=== PATIENT | male | born 1940 | race Caucasian/White ===

== ENCOUNTER → 2017-04-11 | Outpatient (CLI) | payer MEDICARE ==
--- NOTE | 2017-04-11 13:19 | REP ---
MR LUMBAR SPINE WITHOUT AND WITH CONTRAST: HISTORY: Left foot drop. CONTRAST: ProHance 14.4 mL. Decreased signal intensity on T2-weighted images is present in the lumbar intervertebral discs. The L2-3 through L5-S1 intervertebral discs are decreased in height. These findings are consistent with disc degeneration. There is no disc bulge or herniation at the L1-2 and L5-S1 levels. There is hypertrophy of the posterior articulating facets at the L5-S1 level. The nerves exit the neural foramina without compression. A diffuse disc bulge is present at the L2-3 level. There is minimal compression of the thecal sac. There is hypertrophy of the posterior articulating facets. The L2 nerves exit the neural foramina without compression. A diffuse disc bulge is present at the L3-4 level. There is hypertrophy of the ligamenta flava and posterior articulating facets. These findings produce minimal central canal stenosis. The L3 nerves exit the neural foramina without compression. A diffuse disc bulge and small central disc extrusion are present at the L4-5 level. There is hypertrophy of the ligamenta flava and posterior articulating facets. These findings produce moderate central canal stenosis. The L4 nerves exit the neural foramina without compression. The conus medullaris is normal in appearance terminating at the level of the T12-L1 intervertebral disc. Normal signal intensity is present in the lumbar vertebral bodies. IMPRESSION: 1. Diffuse disc bulge at the L2-3 level with minimal thecal sac compression. 2. Minimal central canal stenosis at the L3-4 level secondary to disc bulge ligamentous and facet hypertrophy. 3. Moderate central canal stenosis at the L4-5 level secondary to disc bulge, disc extrusion, ligamentous and facet hypertrophy. Signed by Tariq Khalil MD 04/11/2017 01:48 P
== END ==
LOC: M RAD 11:06
PROVIDERS: ATTEND Nurse Practitioner Adult Health
DX: M21.372 Foot drop, left foot (principal); Z85.79 Personal history of other malignant neoplasms of lymphoid, hematopoietic and related tissues
CPT/HCPCS: 72158; A9576

== ENCOUNTER → 2017-07-03 | Outpatient (CLI) | payer MEDICARE ==
[2017-07-03 11:26] LABS: BLOOD UREA NITROGEN 12 MG/DL (7-18); CREATININE FOR GFR 0.79 MG/DL (0.70-1.30)
[2017-07-03 11:27] LABS: GLOMERULAR FILTRATION RATE > 60.0 (>42)
== END ==
LOC: M LAB 10:12
PROVIDERS: ATTEND Neurological Surgery
DX: M21.372 Foot drop, left foot (principal)

== ENCOUNTER → 2020-02-16 | Outpatient (CLI) | payer MEDICARE | LOC: M LABSMTC 13:07 | PROVIDERS: ATTEND Anesthesiology | DX: Z01.812 Encounter for preprocedural laboratory examination (principal); Z11.59 Encounter for screening for other viral diseases ==

== ENCOUNTER → 2020-05-14 | Outpatient (CLI) | payer MEDICARE ==
[2020-05-14 20:04] LABS: ALBUMIN 3.8 GM/DL (3.2-5.2); ALT/SGPT 25 U/L (12-78); BILIRUBIN,TOTAL 1.1 MG/DL (0.2-1.0); BLOOD UREA NITROGEN 11 MG/DL (7-18); CALCIUM LEVEL 8.6 MG/DL (8.8-10.2); CARBON DIOXIDE LEVEL 31 MEQ/L (21-32); CHLORIDE LEVEL 106 MEQ/L (98-107); CREATININE FOR GFR 0.92 MG/DL (0.70-1.30); GLOMERULAR FILTRATION RATE > 60.0 (>42); GLUCOSE, FASTING 114 MG/DL (70-100); POTASSIUM SERUM 4.1 MEQ/L (3.5-5.1); SODIUM LEVEL 141 MEQ/L (136-145); TOTAL PROTEIN 6.4 GM/DL (6.4-8.2)
== END ==
LOC: M WUC 16:03
PROVIDERS: ATTEND Nurse Practitioner Family
DX: C82.08 Follicular lymphoma grade I, lymph nodes of multiple sites (principal)

== ENCOUNTER → 2025-03-26 | Outpatient (REF) | payer MEDICARE ==
[2025-03-26 14:11] LABS: BASO # 0.0 10^3/uL (0.0-0.2); BASO % 0.0 % (0.0-1.0); EOS # 0.0 10^3/uL (0.0-0.5); EOS % 0.0 % (0.0-3.0); LYMPH # 0.5 10^3/uL (1.5-5.0); LYMPH % 32.1 % (24.0-44.0); MONO # 0.5 10^3/uL (0.0-0.8); MONO % 29.7 % (2.0-8.0); NEUTROPHILS % 37.0 % (36.0-66.0)
[2025-03-26 14:14] LABS: NEUTROPHILS # 0.6 10^3/uL (1.5-8.5)
[2025-03-26 14:15] LABS: PLATELET COUNT, AUTOMATED 65 10^3/uL (150-450)
== END ==
LOC: M LAB REF 13:15
PROVIDERS: ATTEND Nurse Practitioner
DX: C92.00 Acute myeloblastic leukemia, not having achieved remission (principal); C83.30 Diffuse large B-cell lymphoma, unspecified site; C85.18 Unspecified B-cell lymphoma, lymph nodes of multiple sites; R59.1 Generalized enlarged lymph nodes

== ENCOUNTER → 2025-04-09 | Outpatient (REF) | payer MEDICARE ==
[2025-04-09 13:03] LABS: PLATELET COUNT, AUTOMATED 59 10^3/uL (150-450)
[2025-04-09 13:19] LABS: ALT/SGPT 16.0 U/L (7.0-40); AST/SGOT 14.0 U/L (<34); CALCIUM LEVEL 8.5 MG/DL (8.3-10.6); CARBON DIOXIDE LEVEL 25.0 MMOL/L (20-31); CHLORIDE LEVEL 107.0 MMOL/L (98-107); CREATININE FOR GFR 0.75 MG/DL (0.70-1.30); GLOMERULAR FILTRATION RATE 89.0 (>35); MAGNESIUM LEVEL 1.7 MG/DL (1.8-2.4); PHOSPHORUS LEVEL 3.3 MG/DL (2.4-5.1); POTASSIUM SERUM 3.6 MMOL/L (3.5-5.1); SODIUM LEVEL 146.0 MMOL/L (136-145)
[2025-04-09 13:33] LABS: EOSINOPHILS 2 % (0-3); LYMPHOCYTES 26 % (16-44); METAMYELOCYTES 1 % (0-0); MONOCYTES 12 % (0-5); MYELOCYTES 1 % (0-0); NEUTROPHILS 53 % (28-66)
[2025-04-09 13:34] LABS: PLATELET ESTIMATE MARKED DECREASE (NORMAL)
== END ==
LOC: M LAB REF 11:53
PROVIDERS: ATTEND Nurse Practitioner Family
DX: C92.00 Acute myeloblastic leukemia, not having achieved remission (principal); C83.30 Diffuse large B-cell lymphoma, unspecified site

== ENCOUNTER → 2025-04-13 | Outpatient (REF) | payer MEDICARE ==
[2025-04-13 11:48] LABS: BASO # 0.0 10^3/uL (0.0-0.2); BASO % 0.0 % (0.0-1.0); EOS # 0.0 10^3/uL (0.0-0.5); EOS % 1.9 % (0.0-3.0); LYMPH # 0.4 10^3/uL (1.5-5.0); LYMPH % 19.5 % (24.0-44.0); MONO # 0.2 10^3/uL (0.0-0.8); MONO % 7.0 % (2.0-8.0); NEUTROPHILS # 1.5 10^3/uL (1.5-8.5); NEUTROPHILS % 70.7 % (36.0-66.0)
[2025-04-13 11:51] LABS: PLATELET COUNT, AUTOMATED 67 10^3/uL (150-450)
== END ==
LOC: M LAB REF 11:11
PROVIDERS: ATTEND Nurse Practitioner
DX: C85.98 Non-Hodgkin lymphoma, unspecified, lymph nodes of multiple sites (principal)

== ENCOUNTER → 2025-04-16 | Outpatient (REF) | payer MEDICARE ==
[2025-04-16 12:00] LABS: PLATELET COUNT, AUTOMATED 34 10^3/uL (150-450)
[2025-04-16 12:06] LABS: ATYPICAL LYMPH 1 % (0-5); EOSINOPHILS 1 % (0-3); LYMPHOCYTES 25 % (16-44); MONOCYTES 6 % (0-5); NEUTROPHILS 58 % (28-66)
[2025-04-16 12:07] LABS: PLATELET ESTIMATE MARKED DECREASE (NORMAL)
== END ==
LOC: M LAB REF 11:11
PROVIDERS: ATTEND Nurse Practitioner
DX: Z86.2 Personal history of diseases of the blood and blood-forming organs and certain disorders involving the immune mechanism (principal)

== ENCOUNTER → 2025-04-20 | Outpatient (REF) | payer MEDICARE ==
[2025-04-20 11:45] LABS: BASO # 0.0 10^3/uL (0.0-0.2); BASO % 0.7 % (0.0-1.0); EOS # 0.0 10^3/uL (0.0-0.5); EOS % 1.4 % (0.0-3.0); LYMPH # 0.5 10^3/uL (1.5-5.0); LYMPH % 35.7 % (24.0-44.0); MONO # 0.2 10^3/uL (0.0-0.8); MONO % 14.7 % (2.0-8.0); NEUTROPHILS % 46.1 % (36.0-66.0)
[2025-04-20 11:46] LABS: NEUTROPHILS # 0.7 10^3/uL (1.5-8.5); PLATELET COUNT, AUTOMATED 19 10^3/uL (150-450)
== END ==
LOC: M LAB REF 10:38
PROVIDERS: ATTEND Nurse Practitioner
DX: C85.98 Non-Hodgkin lymphoma, unspecified, lymph nodes of multiple sites (principal); C92.00 Acute myeloblastic leukemia, not having achieved remission

== ENCOUNTER → 2025-04-23 | Outpatient (REF) | payer MEDICARE ==
[2025-04-23 14:17] LABS: ALT/SGPT 25.0 U/L (7.0-40); AST/SGOT 21.0 U/L (<34); CALCIUM LEVEL 8.6 MG/DL (8.3-10.6); CARBON DIOXIDE LEVEL 27.0 MMOL/L (20-31); CHLORIDE LEVEL 107.0 MMOL/L (98-107); CREATININE FOR GFR 0.86 MG/DL (0.70-1.30); GLOMERULAR FILTRATION RATE 85.4 (>35); MAGNESIUM LEVEL 1.8 MG/DL (1.8-2.4); PHOSPHORUS LEVEL 3.2 MG/DL (2.4-5.1); POTASSIUM SERUM 3.7 MMOL/L (3.5-5.1); SODIUM LEVEL 147.0 MMOL/L (136-145)
[2025-04-23 14:49] LABS: PLATELET COUNT, AUTOMATED 32 10^3/uL (150-450)
[2025-04-23 14:56] LABS: ATYPICAL LYMPH 5 % (0-5); LYMPHOCYTES 43 % (16-44); METAMYELOCYTES 1 % (0-0); MONOCYTES 20 % (0-5); NEUTROPHILS 27 % (28-66); PLATELET ESTIMATE DECREASED (NORMAL)
== END ==
LOC: M LAB REF 12:32
PROVIDERS: ATTEND Nurse Practitioner Family
DX: C92.00 Acute myeloblastic leukemia, not having achieved remission (principal); C83.30 Diffuse large B-cell lymphoma, unspecified site

== ENCOUNTER → 2025-04-23 | Outpatient (REF) | payer MEDICARE ==
[2025-04-23 14:45] LABS: PLATELET COUNT, AUTOMATED 26 10^3/uL (150-450)
[2025-04-23 15:01] LABS: ATYPICAL LYMPH 4 % (0-5); LYMPHOCYTES 41 % (16-44); METAMYELOCYTES 1 % (0-0); MONOCYTES 25 % (0-5); NEUTROPHILS 25 % (28-66)
[2025-04-23 15:02] LABS: PLATELET ESTIMATE MARKED DECREASE (NORMAL)
== END ==
LOC: M LAB REF 12:26
PROVIDERS: ATTEND Nurse Practitioner
DX: C85.98 Non-Hodgkin lymphoma, unspecified, lymph nodes of multiple sites (principal); C92.00 Acute myeloblastic leukemia, not having achieved remission

== ENCOUNTER → 2025-05-07 | Outpatient (REF) | payer MEDICARE ==
[2025-05-07 11:43] LABS: BASO # 0.0 10^3/uL (0.0-0.2); BASO % 0.0 % (0.0-1.0); EOS # 0.1 10^3/uL (0.0-0.5); EOS % 2.9 % (0.0-3.0); LYMPH # 0.5 10^3/uL (1.5-5.0); LYMPH % 27.1 % (24.0-44.0); MONO # 0.3 10^3/uL (0.0-0.8); MONO % 16.5 % (2.0-8.0); NEUTROPHILS % 52.9 % (36.0-66.0)
[2025-05-07 12:24] LABS: NEUTROPHILS # 0.9 10^3/uL (1.5-8.5); PLATELET COUNT, AUTOMATED 73 10^3/uL (150-450)
== END ==
LOC: M LAB REF 11:22
PROVIDERS: ATTEND Nurse Practitioner
DX: C83.30 Diffuse large B-cell lymphoma, unspecified site (principal); C92.00 Acute myeloblastic leukemia, not having achieved remission

== ENCOUNTER → 2025-06-01 | Outpatient (REF) | payer MEDICARE ==
[2025-06-01 14:25] LABS: BASO # 0.0 10^3/uL (0.0-0.2); BASO % 0.0 % (0.0-1.0); EOS # 0.0 10^3/uL (0.0-0.5); EOS % 1.3 % (0.0-3.0); LYMPH # 0.4 10^3/uL (1.5-5.0); LYMPH % 24.8 % (24.0-44.0); MONO # 0.5 10^3/uL (0.0-0.8); MONO % 30.6 % (2.0-8.0); NEUTROPHILS % 42.7 % (36.0-66.0)
[2025-06-01 14:44] LABS: NEUTROPHILS # 0.7 10^3/uL (1.5-8.5); PLATELET COUNT, AUTOMATED 53 10^3/uL (150-450)
== END ==
LOC: M LAB REF 12:20
PROVIDERS: ATTEND Internal Medicine Hematology & Oncology
DX: C92.00 Acute myeloblastic leukemia, not having achieved remission (principal)

== ENCOUNTER → 2025-06-18 | Outpatient (REF) | payer MEDICARE ==
[2025-06-18 16:14] LABS: BASO # 0.0 10^3/uL (0.0-0.2); BASO % 0.0 % (0.0-1.0); EOS # 0.0 10^3/uL (0.0-0.5); EOS % 0.0 % (0.0-3.0); LYMPH # 0.4 10^3/uL (1.5-5.0); LYMPH % 27.0 % (24.0-44.0); MONO # 0.6 10^3/uL (0.0-0.8); MONO % 44.0 % (2.0-8.0); NEUTROPHILS % 27.6 % (36.0-66.0)
[2025-06-18 16:38] LABS: NEUTROPHILS # 0.4 10^3/uL (1.5-8.5); PLATELET COUNT, AUTOMATED 83 10^3/uL (150-450)
== END ==
LOC: M LAB REF 14:53
DX: C92.00 Acute myeloblastic leukemia, not having achieved remission (principal)

== ENCOUNTER → 2025-06-29 | Outpatient (REF) | payer MEDICARE ==
[2025-06-29 12:52] LABS: BASO # 0.0 10^3/uL (0.0-0.2); BASO % 0.2 % (0.0-1.0); EOS # 0.0 10^3/uL (0.0-0.5); EOS % 0.0 % (0.0-3.0); LYMPH # 1.3 10^3/uL (1.5-5.0); LYMPH % 16.4 % (24.0-44.0); MONO # 4.2 10^3/uL (0.0-0.8); MONO % 51.9 % (2.0-8.0); NEUTROPHILS # 2.1 10^3/uL (1.5-8.5); NEUTROPHILS % 26.0 % (36.0-66.0); PLATELET COUNT, AUTOMATED 130 10^3/uL (150-450)
== END ==
LOC: M LAB REF 11:26
DX: C92.00 Acute myeloblastic leukemia, not having achieved remission (principal)

== ENCOUNTER → 2025-07-10 | Outpatient (REF) | payer MEDICARE ==
[2025-07-10 10:51] LABS: BASO # 0.0 10^3/uL (0.0-0.2); BASO % 0.1 % (0.0-1.0); EOS # 0.0 10^3/uL (0.0-0.5); EOS % 0.0 % (0.0-3.0); LYMPH # 5.6 10^3/uL (1.5-5.0); LYMPH % 7.5 % (24.0-44.0); MONO % 89.7 % (2.0-8.0); NEUTROPHILS # 1.3 10^3/uL (1.5-8.5); NEUTROPHILS % 1.8 % (36.0-66.0)
[2025-07-10 11:04] LABS: MONO # 67.1 10^3/uL (0.0-0.8); PLATELET COUNT, AUTOMATED 53 10^3/uL (150-450)
== END ==
LOC: M LAB REF 10:29
DX: C92.00 Acute myeloblastic leukemia, not having achieved remission (principal)